=== PATIENT | male | born 1995 | race African-American/Black ===

== ENCOUNTER 2018-05-26 02:42 | Emergency (ER) | payer SELFPAY ==
[2018-05-26] MEDS ORDERED: LORAZEPAM 1 MG TABLET PO ONE (02:56)
--- NOTE | 2018-05-26 02:57 | ER Document Report ---
ED General - General Stated Complaint: WELLNESS CHECK Time Seen by Provider: 05/26/18 02:52 Notes: 23-year-old male presents with palpitations. This happened about an hour ago. They are now better. No shortness of breath no chest pain no chest pressure. The patient had about a gram of cocaine recreationally tonight over the evening , then took a shot and a half of alcohol. He went home and his he often does after doing cocaine, took a shot of NyQuil to go to sleep. 30 minutes later he had palpitations. Past Medical History - Social History Smoking Status: Never Smoker Frequency of alcohol use: Occasional Drug Abuse: Cocaine Family History: None Review of Systems - Review of Systems Notes: REVIEW OF SYSTEMS GEN: Denies fever, chills, weight loss ENT: Denies sore throat, nasal discharge, ear pain EYES: Denies blurry vision, eye pain, discharge CV: Palpitations no chest pain RESP: Denies cough, shortness of breath, wheezing GI: Denies abdominal pain, nausea, vomiting, diarrhea MSK: Denies joint pain/swelling, edema, SKIN: Denies rash, skin lesions LYMPH: Denies swollen glands/lymph nodes NEURO: Denies headache, focal weakness or numbness, dizziness PSYCH: Denies depression, suicidal or homicidal ideation PHYSICAL EXAMINATION General: No acute distress, well-nourished Head: Atraumatic, normocephalic ENT: Mouth normal, oropharynx moist, no exudates or tonsillar enlargement Eyes: Conjunctiva normal, pupils equal, lids normal Neck: No JVD, supple, no guarding CVS: Normal rate, regular rhythm, no murmurs Resp: No resp distress, equal and normal breath sounds bilaterally GI: Nondistended, soft, no tenderness to palpation, no rebound or guarding Ext: No deformities, no edema, normal range of motion in upper and lower ext Back: No CVA or midline TTP Skin: No rash, warm Lymphatic: No lymphadeopathy noted Neuro: Awake, alert. Face symmetric. GCS 15. Physical Exam - Vital signs Vitals: Temp Pulse Resp BP Pulse Ox 98.8 F 91 18 115/87 H 97 05/26/18 02:43 05/26/18 02:43 05/26/18 02:43 05/26/18 02:43 05/26/18 02:43 Course - Re-evaluation Re-evalutation: 05/26/18 03:14 Presents with palpitations after cocaine use combined with NyQuil. Possible anticholinergic on top of sympathomimetic symptoms. He has no chest pain or pressure. He looks very well on exam and has no cardiac history. EKG was done which shows LVH but no acute ST changes. The patient is stable to be discharged home given normal vital signs to follow-up with primary care. Advised against cocaine use. I have discussed with the patient there likely diagnosis, aftercare plan, follow-up plans and my usual and customary return precautions. They verbalized understanding of this. - Vital Signs Vital signs: Temp Pulse Resp BP Pulse Ox 98.8 F 91 18 115/87 H 97 05/26/18 02:43 05/26/18 02:43 05/26/18 02:43 05/26/18 02:43 05/26/18 02:43 - EKG Interpretation by Me EKG shows normal: Sinus rhythm Voltage: Consistant with LVH - No acute ST elevation or depression Discharge - Discharge Clinical Impression: Palpitations, Cocaine use Condition: Good Disposition: HOME, SELF-CARE Instructions: Cocaine Abuse ([facility]), Palpitations (Irregular or Rapid Heartrate) ([facility]) Referrals: YAMEL PARISI MD [Primary Care Provider] - Follow up as needed
[2018-05-26 03:14] VITALS: BP 115/87
== END 2018-05-26 03:53 | disposition home or self-care (01) ==
LOC: ER 02:42
DX: F14.10 Cocaine abuse, uncomplicated (principal); R00.2 Palpitations; I51.7 Cardiomegaly
CPT/HCPCS: 99282

== ENCOUNTER 2018-10-15 14:27 | Emergency (ER) | payer SELFPAY ==
[2018-10-15 14:42] VITALS: BP 127/66
--- NOTE | 2018-10-15 21:05 | EKG REPORT ---
SEVERITY:- ABNORMAL ECG - SINUS RHYTHM BORDERLINE Q WAVES IN INFERIOR LEADS NONSPECIFIC T ABNORMALITIES, LATERAL LEADS LVH : Confirmed by: Nanette Kong MD 15-Oct-2018 21:04:15
== END 2018-10-15 19:19 | disposition left against medical advice (07) ==
LOC: ER 14:27
DX: Z53.21 Procedure and treatment not carried out due to patient leaving prior to being seen by health care provider (principal)
CPT/HCPCS: 93005; 93010

== ENCOUNTER 2018-10-23 10:46 | Observation (INO) | payer SELFPAY ==
--- NOTE | 2018-10-23 11:38 | ER Document Report ---
Entered by MANJU DICK SCRIBE 10/23/18 1121 Acting as scribe for:TRACY LAMB MD ED General - General Chief Complaint: Rectal Pain Stated Complaint: RECTAL ISSUE Time Seen by Provider: 10/23/18 11:08 Mode of Arrival: Ambulatory Information source: Patient Notes: Patient is a 23 year old male with no significant medical history presents to the emergency department complaining of rectal pain onset 3-4 days ago. Patient states he feels as if something is hanging from his rectum and further reports it is painful to sit down. He denies a previous history of similar symptoms. TRAVEL OUTSIDE OF THE [place] IN LAST 30 DAYS: No - Related Data Allergies/Adverse Reactions: No Known Allergies Allergy (Verified 10/23/18 10:47) Past Medical History - General Information source: Patient - Social History Smoking Status: Current Some Day Smoker Chew tobacco use (# tins/day): No Frequency of alcohol use: Occasional Drug Abuse: Marijuana Family History: None Patient has suicidal ideation: No Patient has homicidal ideation: No Review of Systems - Review of Systems Constitutional: No symptoms reported EENT: No symptoms reported Cardiovascular: No symptoms reported Respiratory: No symptoms reported Gastrointestinal: See HPI Genitourinary: No symptoms reported Male Genitourinary: No symptoms reported Musculoskeletal: See HPI Skin: No symptoms reported Hematologic/Lymphatic: No symptoms reported Neurological/Psychological: No symptoms reported -: Yes All other systems reviewed and negative Physical Exam - Vital signs Vitals: Temp Pulse Resp BP Pulse Ox 98.4 F 91 16 115/81 94 10/23/18 10:59 10/23/18 10:59 10/23/18 10:59 10/23/18 10:59 10/23/18 10:59 - Notes Notes: GENERAL: Alert, interacts well. No acute distress. HEAD: Normocephalic, atraumatic. EYES: Pupils equal, round, and reactive to light. Extraocular movements intact. ENT: Oral mucosa moist, tongue midline. NECK: Full range of motion. Supple. Trachea midline. LUNGS: Clear to auscultation bilaterally, no wheezes, rales, or rhonchi. No respiratory distress. HEART: Regular rate and rhythm. No murmurs, gallops, or rubs. ABDOMEN: Soft, non-tender. Non-distended. Bowel sounds present in all 4 q uadrants. No guarding, rigidity, or rebound. EXTREMITIES: Moves all 4 extremities spontaneously. No edema, radial and dorsalis pedis pulses 2/4 bilaterally. No cyanosis. NEUROLOGICAL: Alert and oriented x3. Normal speech. PSYCH: Normal affect, normal mood. SKIN: Warm, dry, normal turgor. No rashes or lesions noted. GI/: No external hemorrhoids visualized. There is a non fluctuant mass that is tender to palpation between the scrotum and the anus. Course - Re-evaluation Re-evalutation: 10/23/18 11:36 Dr. Tavarez came to see the patient. Did an ultrasound of the perineal body region showing a large fluid collection that extends down to the anus. Cannot tell if there is any involvement with the anal canal. He plans to take him to the operating room for an exam under general anesthesia and drainage of the abscess. - Vital Signs Vital signs: Temp Pulse Resp BP Pulse Ox 98.4 F 91 16 115/81 94 10/23/18 10:59 10/23/18 10:59 10/23/18 10:59 10/23/18 10:59 10/23/18 10:59 - Consults Dr. Tavarez Time consulted: 11:14 Consulted provider: will come to ER Discharge - Discharge Clinical Impression: Perineal abscess Condition: Stable Disposition: ADMITTED INPATIENT Admitting Provider: Surgicalist Unit Admitted: OR Scribe Attestation: 10/23/18 11:37 I personally performed the services described in the documentation, reviewed and edited the documentation which was dictated to the scribe in my presence, and it accurately records my words and actions. I personally performed the services described in the documentation, reviewed and edited the documentation which was dictated to the scribe in my presence, and it accurately records my words and actions.
[2018-10-23] MEDS ORDERED: CEFAZOLIN 1 GM/D5W RTU 1 GM/50 ML RTUPB IV ONE (11:50)
--- NOTE | 2018-10-23 11:53 | Operative Report ---
Operative Report DATE OF SURGERY: 10/23/18 PREOPERATIVE DIAGNOSIS: Perineal swelling and tenderness POSTOPERATIVE DIAGNOSIS: Same with perianal abscess OPERATION: Focused ultrasound of the perineum SURGEON: AURELIA LUNA ANESTHESIA: Other - None TISSUE REMOVED OR ALTERED: None COMPLICATIONS: None ESTIMATED BLOOD LOSS: None INTRAOPERATIVE FINDINGS: See below PROCEDURE: The patient was examined in room 6 in the emergency department. He was placed in supine position leg spread. Area of tenderness at the base of the scrotum along the peroneal body between the base of scrotum and anus was scanned with the variable frequency linear transducer. Findings were significant for a hypoechoic well-circumscribed mass to the left of the raphe extending down towards the anal canal. There were tattered echoes within the hypoechoic mass. The patient was tender to palpation and during the scanning process. Impression: Perianal abscess extending anteriorly toward the base of scrotum to rule out fistula in anal. Recommendations: Admit, drainage procedure in the operating room.
--- NOTE | 2018-10-23 11:58 | PDOC H&P ---
History of Present Illness Admission Date/PCP: 10/23/18 11:41 Patient complains of: Perineal pain History of Present Illness: PADMINI LUCAS is a 23 year old male Presents to the emergency department with 3-day history of swelling, pain primarily at the base of scrotum, and change in bowel habits with increased mucus. Patient denies previous episodes of. He denies instrumentation to this area. He was examined in emergency department by Dr. Tez Cavazos and clinically was felt to have a perineal body or junie-anal abscess. Surgery was consulted and Dr. Tavarez performed bedside ultrasonography which confirmed perianal abscess. Patient was advised admission for definitive management. Past Medical History Medical History: None Past Surgical History Past Surgical History: Reports: None Social History Information Source: Patient Smoking Status: Current Some Day Smoker Frequency of Alcohol Use: Rare Family History Family History: None Parental Family History Reviewed: Yes Children Family History Reviewed: Yes Sibling(s) Family History Reviewed.: Yes Medication/Allergy Allergies/Adverse Reactions: No Known Allergies Allergy (Verified 10/23/18 10:47) Review of Systems Constitutional: PRESENT: as per HPI Eyes: ABSENT: visual disturbances Ears: ABSENT: hearing changes Cardiovascular: ABSENT: chest pain, dyspnea on exertion, edema, orthropnea, palpitations Respiratory: ABSENT: cough, hemoptysis Gastrointestinal: PRESENT: as per HPI. ABSENT: abdominal pain, constipation, diarrhea, hematemesis, hematochezia, nausea, vomiting Genitourinary: ABSENT: dysuria, hematuria Musculoskeletal: ABSENT: joint swelling Integumentary: ABSENT: rash, wounds Neurological: ABSENT: abnormal gait, abnormal speech, confusion, dizziness, focal weakness, syncope Physical Exam Vital Signs: Temp Pulse Resp BP Pulse Ox 98.4 F 91 16 115/81 94 10/23/18 10:59 10/23/18 10:59 10/23/18 10:59 10/23/18 10:59 10/23/18 10:59 Intake & Output 10/22/18 10/23/18 10/24/18 06:59 06:59 06:59 Weight 88.2 kg General appearance: PRESENT: no acute distress Head exam: PRESENT: normocephalic Eye exam: PRESENT: EOMI Mouth exam: PRESENT: dry mucosa Neck exam: PRESENT: full ROM Respiratory exam: PRESENT: clear to auscultation tanesha Cardiovascular exam: PRESENT: RRR Pulses: PRESENT: normal carotid pulses, normal radial pulses, normal femoral pulses, normal dorsalis pedis pul GI/Abdominal exam: PRESENT: soft Rectal exam: PRESENT: other - Patient examined in the supine frog-leg position. There is tenderness along the median raphae left greater than right extending down to the perianal region. There is no foul smell, pus, active drainage. I did not repeat the rectal examination. Extremities exam: PRESENT: full ROM Musculoskeletal exam: PRESENT: full ROM Neurological exam: PRESENT: alert, awake, oriented to person, oriented to time, oriented to situation Psychiatric exam: PRESENT: appropriate affect Assessment & Plan - Diagnosis (1) Abscess of perineum Is this a current diagnosis for this admission?: Yes Plan: Impression: Acute perianal abscess, rule out fistula in ano Recommendations: 1. Admit, n.p.o., IV fluids, IV antibiotics, take patient to operating room for exam under anesthesia, drainage of perianal abscess, possible fistulotomy, possible seton placement. 2. The above was explained to the patient and his significant other. I believe they understand and agree to proceed. (2) Smoker Is this a current diagnosis for this admission?: Yes - Time Time Spent: 30 to 50 Minutes Critical Time spent with patient: Less than 15 minutes Medications reviewed and adjusted accordingly: Yes Anticipated discharge: Home - Inpatient Certification Based on my medical assessment, after consideration of the patient's comorbidities, presenting symptoms, or acuity I expect that the services needed warrant INPATIENT care.: Yes I certify that my determination is in accordance with my understanding of Medicare's requirements for reasonable and necessary INPATIENT services [42 CFR 412.3e].: Yes Medical Necessity: Need For IV Fluids, Need for Pain Control, Need for IV Antibiotics, Need for Surgery
[2018-10-23] MEDS: RINGERS SOLUTION,LACTATED 1,000 ML IV PRN ×2 (12:36→22:04)
[2018-10-23] MEDS ORDERED: IPRATROPIUM/ALBUTEROL 0.5-2.5 MG/3 ML AMPUL NEB ONE (14:06)
[2018-10-23] MEDS ORDERED: MIDAZOLAM 2 MG/2 ML INJ ONE (14:14)
[2018-10-23] MEDS ORDERED: HYDROMORPHONE HCL INJ/PF 2 MG/ML AMPULE ONE (14:15)
[2018-10-23] MEDS ORDERED: ONDANSETRON HCL INJ/PF 4 MG/2 ML SDV ONE (14:15)
[2018-10-23] MEDS ORDERED: ACETAMINOPHEN 1,000 MG/100 ML RTUPB IV ONE (14:15)
[2018-10-23] MEDS ORDERED: PROPOFOL INJ 200 MG/20 ML VIAL IV ONE (14:15)
[2018-10-23] MEDS ORDERED: BUPIVACAINE HCL 0.25 % INJ/PF (2.5 MG/1 ML) 30 ML VIAL ONE (14:20)
[2018-10-23] MEDS ORDERED: PROMETHAZINE HCL INJ 25 MG/1 ML VIAL IV PRN (14:53)
[2018-10-23] MEDS ORDERED: MORPHINE SULFATE 10 MG/ML INJ IV PRN (14:53)
[2018-10-23] MEDS ORDERED: MEPERIDINE HCL/PF INJ 25 MG/1 ML DISP.SYRIN IV PRN (14:53)
[2018-10-23] MEDS ORDERED: DIPHENHYDRAMINE HCL 50 MG/ML VIAL IV PRN (14:53)
[2018-10-23] MEDS ORDERED: FENTANYL CITRATE INJ/PF 100 MCG/2 ML AMPUL IV PRN ×3 (14:53)
[2018-10-23] MEDS ORDERED: ONDANSETRON HCL INJ/PF 4 MG/2 ML SDV IV PRN (15:10)
[2018-10-23] MEDS ORDERED: KETOROLAC TROMETHAMINE 10 MG TABLET PO PRN (15:10)
[2018-10-23] MEDS ORDERED: OXYCODONE-ACETAMINOPHEN 5-325 MG TABLET PO PRN (15:20)
--- NOTE | 2018-10-23 15:20 | Operative Report ---
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 Examination under anesthesia. 2. Drainage of perianal abscess with irrigation and packing. 3. Fistulotomy right anterior position, intersph incter. 4. Placement of shamar loop seton SURGEON: AURELIA LUNA ANESTHESIA: GA TISSUE REMOVED OR ALTERED: Pus, skin, necrotic fat COMPLICATIONS: None ESTIMATED BLOOD LOSS: Minimal INTRAOPERATIVE FINDINGS: See below PROCEDURE: Patient was taken to the preop holding area the main operating room where general anesthesia was induced. Patient was placed in the supine, legs frog legged, testicles elevated cephalad and taped out of the operative field. The perineum was shaved, then prepped and draped in sterile fashion. Surgical plan and surgical timeout were conducted. The findings are significant for an elevated, tense perineal body, median raphae, and perianal skin all anterior to the anal region. This entire area was anesthetized with 1% plain lidocaine. There was no active wound however with pressure on the perineal body, I was able to express some pus from the perianal tissue in the right anterior position. I did digitalize the anal canal, dilated up to accept two fingers, then inserted the bullet anoscope. Careful inspection of the anal canal up to the dentate line revealed no obvious internal openings to a fistula. I did palpate this area and I could not feel or see a distinct opening. A longitudinal incision was made in the patient's midline over the raphae. We got right into the pus pocket, sent it for Gram stain culture and sensitivity, and broke up loculations cephalad and caudad using index finger. Cephalad the tracking extended towards the base of the scrotum several centimeters. A small ellipse of skin was excised with a #10 blade. Subcutaneous fat which was inflamed was debrided bluntly. Of note the abscess tracked to the patient's midline anteriorly, then to the right anterior position. Using combination of suction, as well as probes, I was able to feel the tracking point going down towards the sphincter, in a radial direction and eventually down through the sphincter towards the dentate line. Using a metallic thin probe I was able to insinuate the opening to the fistula, and gingerly poked the probe into the anal canal. I then passed a flexible rubberize dev loop into position and tied it into a not effectively creating a seton. The abscess cavity in essence tract from the patient's midline to the patient's right anterior perianal pocket then through the external sphincter muscle into the anal canal. The wound cavity was irrigated,, then packed with iodoform packing cephalad and caudad towards the anal canal. 4 x 4's applied. Patient tolerated procedure well.
[2018-10-23] MEDS ORDERED: DOCUSATE SODIUM 100 MG CAPSULE PO SCH (18:00)
[2018-10-23] MEDS ORDERED: AMPICILLIN SODIUM/SULBACTAM NA 3 GM in NORMAL SALINE 100 ML IV SCH (22:00)
[2018-10-23] MEDS: AMPICILLIN SODIUM/SULBACTAM NA 3 GM in NORMAL SALINE 100 ML IV SCH (22:04)
[2018-10-23] MEDS: KETOROLAC TROMETHAMINE INJ/PF 30 MG/1 ML SDV IV PRN (22:13)
[2018-10-24] MEDS: KETOROLAC TROMETHAMINE INJ/PF 30 MG/1 ML SDV IV PRN (05:26)
[2018-10-24] MEDS: AMPICILLIN SODIUM/SULBACTAM NA 3 GM in NORMAL SALINE 100 ML IV SCH (05:30)
[2018-10-24 08:47] VITALS: BP 115/51
--- NOTE | 2018-10-24 10:05 | PDOC PROGRESS REPORT ---
Subjective Progress Note for:: 10/24/18 Subjective:: no c/o Reason For Visit: PERINEAL ABSCESS Physical Exam Vital Signs: Temp Pulse Resp BP Pulse Ox 98.2 F 67 12 115/51 L 96 10/24/18 07:39 10/24/18 07:39 10/24/18 07:39 10/24/18 07:39 10/24/18 07:39 Intake & Output 10/23/18 10/24/18 10/25/18 06:59 06:59 06:59 Intake Total 3350 Output Total 300 Balance 3050 Weight 86.6 kg General appearance: PRESENT: no acute distress Rectal exam: PRESENT: other - surgical wound clean, no odor, minimal serosanguinous drainage, rubber seton in place Assessment & Plan - Diagnosis (1) Abscess of perineum Is this a current diagnosis for this admission?: Yes - Plan Summary Plan Summary: A/ POD#1 after I&D of perianal/perineal abscess Surgical site clean, seton in place packing removed P Remove packing Home today Follow up with Surgery [facility] ([facility]) in 2 weeks BID shower and sitz bath apply dry sponge to area, no packing or tape needed do not remove the plastic drain Tylenol 325 mg po q6 prn pain Toradol 10 mg po q6 prn pain x 12 doses, take it with food
--- NOTE | 2018-10-24 16:39 | DISCHARGE SUMMARY E ---
Discharge Summary NAME: PADMINI LUCAS : 1995 AGE: 23Y ADMITTED: 10/23/2018 DISCHARGED: 10/24/2018 FINAL DIAGNOSIS: Perineal and perirectal abscess on the right side. PROCEDURE: Incision and drainage of perineal and perirectal abscess, with drain placement on October 23, 2018. HOSPITAL COURSE: This is a 23-year-old healthy -[place] male admitted on October 23, 2018 for pain in the perineal and perianal area. An ultrasound of the area was done, revealing a large abscess. The patient was taken to surgery, where he underwent perineal and perirectal abscess drainage. In addition, a draining point in the rectum was identified and the patient underwent placement of a seton. The procedure was well-tolerated. The patient was then transferred to the floor in satisfactory condition. His postop course was unremarkable. On the day of discharge, the patient's vital signs were stable. He was afebrile. The wound was clean with minimal serous drainage. The packing was removed. Drain was then placed. No evidence of cellulitis or odor was present. DISCHARGE ORDERS: The patient was discharged on October 24, 2018, to follow up in the surgery office in 2 weeks. The patient was instructed to shower twice a day and to perform a sitz bath once or twice a day. Apply dry packing to the area. Tylenol and Toradol p.o. prn for pain. No antibiotics needed. DICTATING PHYSICIAN: CINDY LOVELACE M.D. [id number] PHY#: [id number] ID: [id number] JOB#: [id number] ACCT: [id number] cc:Alexey FOX M.D. > MTDD
== END 2018-10-24 11:00 | disposition home or self-care (01) ==
LOC: ER 10:46 → INTOOBSV 11:41 → EH 11:41 → 2N 16:02
PROVIDERS: ADMIT Surgery; ATTEND Surgery
PROC: 0D9Q0ZX Drainage of Anus, Open Approach, Diagnostic (ICD-10-PCS; 2018-10-23)
PROC: 0DBQ0ZZ Excision of Anus, Open Approach (ICD-10-PCS; principal; 2018-10-23 14:00)
DX: L02.215 Cutaneous abscess of perineum (principal); K61.0 Anal abscess; F17.200 Nicotine dependence, unspecified, uncomplicated
CPT/HCPCS: 99285; 87070; 87205; 87075; 87077; 46275; 46020; 46050; G0378 ×3; J2250; J0690; J1200; J0295 ×2; J1885 ×2; J1170; J2405; J7120; J2704; J7620; J0131; 902; J7050

== ENCOUNTER 2018-12-06 15:27 | Emergency (ER) | payer SELFPAY ==
[2018-12-06] MEDS ORDERED: IPRATROPIUM/ALBUTEROL 0.5-2.5 MG/3 ML AMPUL NEB ONE (17:02)
[2018-12-06] MEDS ORDERED: METHYLPREDNISOLONE INJ 125 MG/2 ML SDV IV ONE (17:02)
--- NOTE | 2018-12-06 17:12 | ER Document Report ---
ED Medical Screen (RME) - General Chief Complaint: Asthma Exacerbation Stated Complaint: BREATHING PROBLEMS Time Seen by Provider: 12/06/18 17:01 Mode of Arrival: Ambulatory Information source: Patient Notes: 23-year-old male presents to ED for asthma attack chest tightness wheezing audible without a stethoscope. Very diminished lung sounds inspiratory and expiratory wheezes. He is short of breath with O2 sat of 96. He states he has never had a asthma attack this bad. I have started him on Solu-Medrol albuterol and duo nebs. He will get blood work and chest x-ray and be seen by another provider. I have greeted and performed a rapid initial assessment of this patient. A comprehensive ED assessment and evaluation of the patient, analysis of test results and completion of medical decision making process will be conducted by an additional ED providers. Dictation of this chart was performed using voice recognition software; therefore, there may be some unintended grammatical errors. TRAVEL OUTSIDE OF THE [place] IN LAST 30 DAYS: No - Related Data Allergies/Adverse Reactions: No Known Allergies Allergy (Verified 10/23/18 10:47) Past Medical History - Social History Chew tobacco use (# tins/day): No Frequency of alcohol use: Social Drug Abuse: None Pulmonary Medical History: Reports: Hx Asthma Renal/ Medical History: Denies: Hx Peritoneal Dialysis Physical Exam - Vital signs Vitals: Temp Pulse Resp BP Pulse Ox 99.1 F 68 16 121/67 96 12/06/18 16:10 12/06/18 16:10 12/06/18 16:10 12/06/18 16:10 12/06/18 16:10 Course - Vital Signs Vital signs: Temp Pulse Resp BP Pulse Ox 99.1 F 68 16 121/67 96 12/06/18 16:10 12/06/18 16:10 12/06/18 16:10 12/06/18 16:10 12/06/18 16:10
[2018-12-06] MEDS: ALBUTEROL SULFATE 0.083% NEB 2.5 MG/3 ML AMPUL NEB SCH ×2 (17:30→18:00)
[2018-12-06 17:36] LABS: ABSOLUTE EOSINOPHILS # (AUTO) 0.6 10^3/uL (0.0-0.6); ABSOLUTE LYMPHOCYTES (AUTO) 2.4 10^3/uL (0.5-4.7); ABSOLUTE MONOCYTES (AUTO) 0.4 10^3/uL (0.1-1.4); ABSOLUTE NEUT (AUTO) 1.8 10^3/uL (1.7-8.2); BASOPHILS % (AUTO) 0.4 % (0-2); EOSINOPHILS % (AUTO) 10.7 % (0-6); HEMATOCRIT 41.2 % (37.9-51.0); HEMOGLOBIN 13.4 g/dL (13.5-17.0); LYMPHOCYTES % (AUTO) 45.2 % (13-45); MEAN CORPUSCULAR HEMOGLOBIN 28.3 pg (27.0-33.4); MEAN CORPUSCULAR HGB CONC 32.5 g/dL (32.0-36.0); MEAN CORPUSCULAR VOLUME 87 fl (80-97); MONOCYTES % (AUTO) 8.6 % (3-13); PLATELET COUNT 168 10^3/uL (150-450); RED BLOOD COUNT 4.73 10^6/uL (4.35-5.55); RED CELL DISTRIBUTION WIDTH 13.4 % (11.5-14.0); SEGMENTED NEUTROPHILS % (AUTO) 35.1 % (42-78); TOTAL CELLS COUNTED % (AUTO) 100 %; WHITE BLOOD COUNT 5.2 10^3/uL (4.0-10.5)
[2018-12-06 17:56] LABS: ALANINE AMINOTRANSFERASE 21 U/L (21-72); ALBUMIN 4.7 g/dL (3.5-5.0); ALKALINE PHOSPHATASE 57 U/L (38-126); ANION GAP 12 (5-19); ASPARTATE AMINO TRANSFERASE 21 U/L (17-59); BILIRUBIN,DIRECT 0.2 mg/dL (0.0-0.4); BILIRUBIN,TOTAL 0.6 mg/dL (0.2-1.3); BLOOD UREA NITROGEN 15 mg/dL (7-20); CALCIUM 9.8 mg/dL (8.4-10.2); CARBON DIOXIDE 28 mmol/L (22-30); CHLORIDE 104 mmol/L (98-107); GLUCOSE 89 mg/dL (75-110); POTASSIUM 4.4 mmol/L (3.6-5.0); SODIUM 143.6 mmol/L (137-145); TOTAL PROTEIN 7.9 g/dL (6.3-8.2)
[2018-12-06] MEDS ORDERED: ALBUTEROL SULFATE HFA (90 MCG/PUFF) 8 GM MDI (1 MDI/ER DISP) IH ONE (18:31)
[2018-12-06 18:35] VITALS: BP 127/75
--- NOTE | 2018-12-06 18:37 | RADIOLOGY REPORT (SQ) ---
EXAM DESCRIPTION: CHEST 2 VIEWS COMPLETED DATE/TIME: 12/06/2018 5:34 pm REASON FOR STUDY: wheezing very tight pain COMPARISON: 04/03/2007 and earlier EXAM PARAMETERS: NUMBER OF VIEWS: two views TECHNIQUE: Digital Frontal and Lateral radiographic views of the chest acquired. RADIATION DOSE: NA LIMITATIONS: none FINDINGS: LUNGS AND PLEURA: No opacities, masses or pneumothorax. No pleural effusion. MEDIASTINUM AND HILAR STRUCTURES: No masses or contour abnormalities. HEART AND VASCULAR STRUCTURES: Heart normal size. No evidence for failure. BONES: No acute findings. HARDWARE: None in the chest. OTHER: No other significant finding. IMPRESSION: NO ACUTE RADIOGRAPHIC FINDING IN THE CHEST. TECHNICAL DOCUMENTATION: JOB ID: [id number] [email or web address]- All Rights Reserved Reading location - IP/workstation name: [email or web address]
--- NOTE | 2018-12-06 18:37 | ER Document Report ---
ED Respiratory Problem - General Chief Complaint: Asthma Exacerbation Stated Complaint: BREATHING PROBLEMS Time Seen by Provider: 12/06/18 17:01 Primary Care Provider: [facility] [Provider Group] - Follow up as needed Mode of Arrival: Ambulatory Information source: Patient TRAVEL OUTSIDE OF THE [place] IN LAST 30 DAYS: No - HPI Patient complains to provider of: Asthma Notes: Patient here with complaints of asthma attack. The patient states that he cut several lawns over the weekend. After cutting the second line he started to feel like his asthma was acting up and he was having some cough and wheeze. No fever. He denies any chest pain but states he was having some tightness similar to previous asthma exacerbations. States this certainly seem to be 1 of the worst asthma exacerbations he has had. He has been admitted to the hospital for his asthma in the past but has never been intubated. He denies any fevers. He denies any recent long trips or surgeries, no leg pain or leg swelling, no cancer, no history of DVT or PE. No abdominal pain. No nausea, vomiting, diarrhea. No numbness, tingling, weakness. He denies any further complaints at this time. - Related Data Allergies/Adverse Reactions: No Known Allergies Allergy (Verified 10/23/18 10:47) Past Medical History - General Information source: Patient - Social History Smoking Status: Never Smoker Chew tobacco use (# tins/day): No Frequency of alcohol use: Social Drug Abuse: None Family History: None Patient has suicidal ideation: No Patient has homicidal ideation: No Pulmonary Medical History: Reports: Hx Asthma Renal/ Medical History: Denies: Hx Peritoneal Dialysis Review of Systems - Review of Systems -: Yes All other systems reviewed and negative Physical Exam - Vital signs Vitals: Temp Pulse Resp BP Pulse Ox 99.1 F 68 16 121/67 96 12/06/18 16:10 12/06/18 16:10 12/06/18 16:10 12/06/18 16:10 12/06/18 16:10 - Notes Notes: GENERAL: alert, cooperative, nontoxic, no distress. HEAD: normocephalic, atraumatic EYES: conjunctiva pink without discharge, no external redness or swelling. EARS: no external swelling, no external redness, no mastoid redness, swelling, tenderness. Ear canals are clear without swelling or drainage. TMs pearly torres, no redness, no bulging, normal landmarks, no perforation. NOSE: atraumatic, no external swelling. clear rhinorrhea noted. MOUTH/THROAT: mucous membranes moist and pink, posterior pharynx without erythema, swelling, exudate. No trismus or drooling. NECK: soft, supple, full range of motion, no meningismus. CHEST: no distress, patient reported to have auditory expiratory wheezing prior to my exam. From my exam the patient has a few scattered wheezes, good air movement, no distress. CARDIAC: regular rate and rhythm, no murmur, normal capillary refill, normal pulses. No peripheral edema noted. BACK: full range of motion, no CVA tenderness. EXTREMITIES: full range of motion of all extremities. No redness, no swelling. NEURO: alert and oriented A&O3, no focal deficits, full range of motion of all e xtremities. PYSCH: appropriate mood, affect. Patient is cooperative. SKIN: pink, warm, dry, no rash. Course - Re-evaluation Re-evalutation: 12/06/18 18:35 Patient is nontoxic-appearing with stable vitals. Patient here with complaints of possible asthma exacerbation. He has a history of asthma states that he cut grass over the weekend and started having trouble breathing and wheezing for that. No fever. No chest pain. Patient was seen and initially noted to have wheezing by the triage provider. He was given duo nebs and Solu-Medrol. He states that he feels significantly better at this time. He does not currently have insurance, therefore he will be given a albuterol inhaler to go home with. Lab work is unremarkable for any significant abnormalities. His vitals are stable, he is not hypoxic. He is in no distress at this time. Currently awaiting chest x-ray results. If x-ray results are unremarkable for any significant abnormalities, the patient will be discharged home with a prescription for prednisone, albuterol and [facility]. He was instructed also take an bnqf-jyd-yqocrvq antihistamine such as Claritin, Zyrtec or Germania as directed. Follow-up if he gets worse in any way, high fever, chest pain, significant trouble breathing, or for any further concerns. The patient's emergency department workup and current diagnosis were explained to the patient and or family. Follow-up instructions were provided. Medications if prescribed were discussed. Instructions for when to return to the emergency department including specific worrisome symptoms were discussed with the patient and/or family. - Vital Signs Vital signs: Temp Pulse Resp BP Pulse Ox 98.4 F 65 20 127/75 H 98 12/06/18 18:33 12/06/18 18:33 12/06/18 18:33 12/06/18 18:33 12/06/18 18:33 - Laboratory Result Diagrams: 12/06/18 17:10 12/06/18 17:10 Laboratory results interpreted by me: 12/06/18 17:10 Hgb 13.4 L Seg Neutrophils % 35.1 L Lymphocytes % 45.2 H Eosinophils % 10.7 H Discharge - Discharge Clinical Impression: Asthma exacerbation Qualifiers: Asthma severity: moderate Asthma persistence: unspecified Qualified Code(s): J45.901 - Unspecified asthma with (acute) exacerbation Condition: Stable Disposition: HOME, SELF-CARE Instructions: Asthma ([facility]) Additional Instructions: Take medications as prescribed. Take an [id number]-imndfjp antihistamine such as Claritin, Zyrtec, or Germania as directed. Follow-up if not improving in the next 24 to 48 hours, sooner for worsening symptoms, chest pain, significant trouble breathing, high fever, persistent vomiting, or for any further concerns. Prescriptions: Albuterol Sulfate [Proair HFA Inhalation Aerosol 8.5 gm MDI] 2 puff IH Q4H PRN #1 mdi PRN Reason: Albuterol Sulfate [Ventolin 0.083% Neb 2.5 mg/3 mL Ampul] 1 vial NEB Q4 #20 vial Prednisone [Deltasone 20 mg Tablet] 3 tab PO DAILY 5 Days tablet Forms: Elevated Blood Pressure, Smoking Cessation Education Referrals: [facility] [Provider Group] - Follow up as needed
== END 2018-12-06 19:16 | disposition home or self-care (01) ==
LOC: ER 15:27
DX: J45.901 Unspecified asthma with (acute) exacerbation (principal)
CPT/HCPCS: 94640 ×2; 99283; 96374; 36415; 85025; 80053; 71046; J2930; J3490; J7620

== ENCOUNTER 2019-06-04 15:52 | Emergency (ER) | payer OTHER ==
[2019-06-04 16:03] VITALS: BP 138/78
[2019-06-04] MEDS ORDERED: CEFTRIAXONE INJ 250 MG VIAL IM ONE (16:14)
[2019-06-04] MEDS ORDERED: AZITHROMYCIN 250 MG TABLET PO ONE (16:15)
[2019-06-04] MEDS ORDERED: LIDOCAINE 1% INJ (10 MG/ML) 10 ML MDV INJ ONE (16:15)
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
[2019-06-04 17:52] LABS: APPEARANCE,URINE CLEAR; BILIRUBIN,URINE NEGATIVE (NEGATIVE); COLOR,URINE YELLOW; GLUCOSE, URINE NEGATIVE (NEGATIVE); KETONES,URINE NEGATIVE (NEGATIVE); LEUKOCYTE ESTERASE,URINE NEGATIVE (NEGATIVE); NITRITE,URINE NEGATIVE (NEGATIVE); PROTEIN,URINE NEGATIVE (NEGATIVE); URINE SPECIFIC GRAVITY 1.024; UROBILINOGEN,URINE NEGATIVE mg/dL (<2.0)
[2019-06-04 19:41] LABS: CHLAM PCR NOT DETECTED (NOT DETECT)
== END 2019-06-04 18:49 | disposition home or self-care (01) ==
LOC: ER 15:52
DX: R30.0 Dysuria (principal); Z20.2 Contact with and (suspected) exposure to infections with a predominantly sexual mode of transmission
CPT/HCPCS: 81001; 87491; 87591; J0696; 96372; 99283

== ENCOUNTER 2019-08-23 11:51 | Emergency (ER) | payer BC, OTHER ==
--- NOTE | 2019-08-23 12:40 | ER Document Report ---
ED Medical Screen (RME) - General Chief Complaint: Groin Pain Stated Complaint: GROIN PAIN Time Seen by Provider: 08/23/19 12:38 Mode of Arrival: Ambulatory Information source: Patient Notes: 24-year-old male presented to ED for complaint of groin pain. He states that he had a perianal abscess surgically removed with a drain left in a year ago. He states he has working with the surgeon and they would not see him at the time because he did not have insurance now he has insurance and his surgeon told him he would have to have $800 upfront before they would see him. He states he has severe pain he states his pain is a spasming jacey feeling in his groin area and is very painful. We will get blood urine and a pelvic ultrasound. I have greeted and performed a rapid initial assessment of this patient. A comprehensive ED assessment and evaluation of the patient, analysis of test results and completion of medical decision making process will be conducted by an additional ED providers. TRAVEL OUTSIDE OF THE [place] IN LAST 30 DAYS: No - Related Data Allergies/Adverse Reactions: No Known Allergies Allergy (Verified 08/23/19 12:35) Past Medical History Pulmonary Medical History: Reports: Hx Asthma Renal/ Medical History: Denies: Hx Peritoneal Dialysis Physical Exam - Vital signs Vitals: Temp Pulse Resp BP Pulse Ox 98.3 F 75 16 123/76 97 08/23/19 12:08/23/19 12:08/23/19 12:08/23/19 12:08/23/19 12:25 Course - Vital Signs Vital signs: Temp Pulse Resp BP Pulse Ox 98.3 F 75 16 123/76 97 08/23/19 12:08/23/19 12:25 08/23/19 12:08/23/19 12:08/23/19 12:25
[2019-08-23 13:47] LABS: ABSOLUTE EOSINOPHILS # (AUTO) 0.5 10^3/uL (0.0-0.6); ABSOLUTE MONOCYTES (AUTO) 0.4 10^3/uL (0.1-1.4); ABSOLUTE NEUT (AUTO) 1.7 10^3/uL (1.7-8.2); BASOPHILS % (AUTO) 0.7 % (0-2); HEMATOCRIT 43.6 % (37.9-51.0); HEMOGLOBIN 14.6 g/dL (13.5-17.0); MEAN CORPUSCULAR HEMOGLOBIN 29.9 pg (27.0-33.4); MEAN CORPUSCULAR HGB CONC 33.6 g/dL (32.0-36.0); MEAN CORPUSCULAR VOLUME 89 fl (80-97); MONOCYTES % (AUTO) 9.3 % (3-13); PLATELET COUNT 210 10^3/uL (150-450); RED CELL DISTRIBUTION WIDTH 13.2 % (11.5-14.0); TOTAL CELLS COUNTED % (AUTO) 100 %; WHITE BLOOD COUNT 4.6 10^3/uL (4.0-10.5)
[2019-08-23 14:07] LABS: ALBUMIN 4.6 g/dL (3.5-5.0); ALKALINE PHOSPHATASE 47 U/L (38-126); ANION GAP 10 (5-19); ASPARTATE AMINO TRANSFERASE 45 U/L (17-59); BILIRUBIN,DIRECT 0.2 mg/dL (0.0-0.4); BLOOD UREA NITROGEN 20 mg/dL (7-20); CALCIUM 9.7 mg/dL (8.4-10.2); CARBON DIOXIDE 27 mmol/L (22-30); CHLORIDE 103 mmol/L (98-107); GLUCOSE 86 mg/dL (75-110); POTASSIUM 4.3 mmol/L (3.6-5.0); TOTAL PROTEIN 7.5 g/dL (6.3-8.2)
[2019-08-23 16:20] LABS: AMORPHOUS SEDIMENT,URINE 1+ /HPF; APPEARANCE,URINE TURBID; BILIRUBIN,URINE NEGATIVE (NEGATIVE); COLOR,URINE YELLOW; GLUCOSE, URINE NEGATIVE (NEGATIVE); KETONES,URINE NEGATIVE (NEGATIVE); PROTEIN,URINE NEGATIVE (NEGATIVE); URINE SPECIFIC GRAVITY 1.024; UROBILINOGEN,URINE NEGATIVE mg/dL (<2.0)
--- NOTE | 2019-08-23 16:29 | RADIOLOGY REPORT (SQ) ---
EXAM DESCRIPTION: CT PELVIS WITH COMPLETED DATE/TIME: 08/23/2019 4:19 pm REASON FOR STUDY: evaluate for perianal abscess/pain COMPARISON: None. TECHNIQUE: CT scan of the pelvis performed after intravenous contrast. Delayed images. Images revi ewed with soft tissue and bone windows. Reconstructed coronal and sagittal MPR images reviewed. All images stored on PACS. All CT scanners at this facility use dose modulation, iterative reconstruction, and/or weight based d osing when appropriate to reduce radiation dose to as low as reasonably achievable (ALARA). [facility]: Dose Right [facility]: CareDose [facility]: Dose Right [facility]: Teradose 4D [facility]: myGreek RADIATION DOSE: CT Rad equipment meets quality standard of care and radiation dose reduction techniq ues were employed. CTDIvol: 10.4 - 14.4 mGy. DLP: 942 mGy-cm. mGy. LIMITATIONS: None. FINDINGS: PELVIC BONES: No acute fracture. No worrisome bone lesions. VISUALIZED SPINE: No acute findings. HIP(S): No acute fracture or dislocation. No worrisome bone lesions. PELVIC SOFT TISSUES: Fusiform inflammatory changes in the right perianal soft tissue. No abscess. EXTRAPELVIC SOFT TISSUES: No significant findings. OTHER: No other significant finding. IMPRESSION: No abscess. TECHNICAL DOCUMENTATION: JOB ID: [id number] Quality ID # [id number]: Final reports with documentation of one or more dose reduction techniques (e.g., Au tomated exposure control, adjustment of the mA and/or kV according to patient size, use of iterative reconstruction technique) 2010 [employer]- All Rights Reserved Reading location - IP/workstation name: [email or web address]
--- NOTE | 2019-08-23 16:39 | ER Document Report ---
ED General - General Chief Complaint: Groin Pain Stated Complaint: GROIN PAIN Time Seen by Provider: 08/23/19 12:38 Mode of Arrival: Ambulatory TRAVEL OUTSIDE OF THE [place] IN LAST 30 DAYS: No - HPI Notes: Patient presents with perianal pain. He states approximate 1 year ago he had a perianal abscess. This was treated in the operating room here at [facility]. He states a drain was put in place but it was never removed. He states his drain is now causing him pain and he would like to have it removed. He states when he has bowel movements or urinates it does cause him pain. This pain has been intermittent. It is mild to moderate. It is a sharp pain. It is worse with urination or bowel movements and better when it is left alone. The pain does radiate through his perineum. - Related Data Allergies/Adverse Reactions: No Known Allergies Allergy (Verified 08/23/19 12:35) Past Medical History - General Information source: Patient - Social History Smoking Status: Current Every Day Smoker Frequency of alcohol use: None Drug Abuse: None - Vertebral body Family History: None Patient has suicidal ideation: No Patient has homicidal ideation: No Pulmonary Medical History: Reports: Hx Asthma Renal/ Medical History: Denies: Hx Peritoneal Dialysis Review of Systems - Review of Systems Constitutional: denies: Chills - Is not present, Fever Cardiovascular: denies: Chest pain - , And, Palpitations Respiratory: denies: Cough - finished his work-up, Short of breath - problems aside from having pneumonia brought -: Yes All other systems reviewed and negative Physical Exam - Vital signs Vitals: Temp Pulse Resp BP Pulse Ox 98.3 F 75 16 123/76 97 08/23/19 12:25 08/23/19 12:25 08/23/19 12:25 08/23/19 12:25 08/23/19 12:25 Interpretation: Normal - General General appearance: Appears well, Alert - HEENT Head: Normocephalic, Atraumatic Eyes: Normal Pupils: PERRL - Respiratory Respiratory status: No respiratory distress Chest status: Nontender Breath sounds: Normal Chest palpation: Normal - Cardiovascular Rhythm: Regular Heart sounds: Normal auscultation Murmur: No - Abdominal Inspection: Normal Distension: No distension Bowel sounds: Normal Tenderness: Nontender Organomegaly: No organomegaly - Rectal Notes: Patient has a drain in place in the perineum. The area around the drain is tender. However there is no erythema or induration. There is no drainage of pus or fluid. - Back Back: Normal, Nontender - Extremities General upper extremity: Normal inspection, Nontender, Normal color, Normal ROM, Normal temperature General lower extremity: Normal inspection, Nontender, Normal color, Normal ROM, Normal temperature, Normal weight bearing. No: Tal's sign - Neurological Neuro grossly intact: Yes Cognition: Normal Orientation: AAOx4 Vinicius Coma Scale Eye Opening: Spontaneous [place] Coma Scale Verbal: Oriented [place] Coma Scale Motor: Obeys Commands [place] Coma Scale Total: 15 Speech: Normal Motor strength normal: LUE, RUE, LLE, RLE Sensory: Normal - Psychological Associated symptoms: Normal affect, Normal mood - Skin Skin Temperature: Warm Skin Moisture: Dry Skin Color: Normal Course - Re-evaluation Re-evalutation: 08/23/19 16:37 CT scan shows no evidence of abscess or inflammatory process in the perineum. - Vital Signs Vital signs: Temp Pulse Resp BP Pulse Ox 98.3 F 75 16 123/76 97 08/23/19 12:25 08/23/19 12:25 08/23/19 12:25 08/23/19 12:25 08/23/19 12:25 - Laboratory Result Diagrams: 08/23/19 13:00 08/23/19 13:00 Laboratory results interpreted by me: 08/23/19 08/23/19 13:00 13:00 Eos % (Auto) 10.0 H Seg Neutrophils % 37.0 L Urine Ascorbic Acid 20 H - Diagnostic Test Radiology reviewed: Image reviewed, Reports reviewed Discharge - Discharge Clinical Impression: Rectal pain Condition: Stable Disposition: HOME, SELF-CARE Forms: Return to Work Referrals: [facility] [Provider Group] - Follow up as needed
[2019-08-23 17:04] VITALS: BP 145/71
== END 2019-08-23 17:03 | disposition home or self-care (01) ==
LOC: ER 11:51
DX: K62.89 Other specified diseases of anus and rectum (principal); F17.200 Nicotine dependence, unspecified, uncomplicated; J45.909 Unspecified asthma, uncomplicated; Z87.19 Personal history of other diseases of the digestive system; Z98.890 Other specified postprocedural states
CPT/HCPCS: 36415; 72193; 80053; 81001; 85025; 99284

== ENCOUNTER 2020-01-19 12:14 | Emergency (ER) | payer BC, OTHER ==
--- NOTE | 2020-01-19 12:38 | ER Document Report ---
ED Medical Screen (RME) - General Chief Complaint: Abscess Stated Complaint: ABSCESS/BUTTOCKS Time Seen by Provider: 01/19/20 12:32 Notes: HPI: 24-year-old male with history of perirectal abscess presenting for similar discomfort in the rectal region for 2 days. Reports a small lump that is tender adjacent to the rectum. No fever. No difficulty with bowel movements. He is concerned about another abscess PHYSICAL EXAMINATION: Rectal exam deferred in triage I have greeted and performed a rapid initial assessment of this patient. A comprehensive ED assessment and evaluation of the patient, analysis of test results and completion of medical decision making process will be conducted by an additional ED providers. TRAVEL OUTSIDE OF THE [place] IN LAST 30 DAYS: No - Related Data Allergies/Adverse Reactions: No Known Allergies Allergy (Verified 01/19/20 12:27) Past Medical History - Social History Chew tobacco use (# tins/day): No Frequency of alcohol use: Occasional Drug Abuse: None Pulmonary Medical History: Reports: Hx Asthma Renal/ Medical History: Denies: Hx Peritoneal Dialysis Physical Exam - Vital signs Vitals: Temp Pulse Resp BP Pulse Ox 98.5 F 89 18 126/74 H 98 01/19/20 12:19 01/19/20 12:19 01/19/20 12:19 01/19/20 12:19 01/19/20 12:19 Course - Vital Signs Vital signs: Temp Pulse Resp BP Pulse Ox 98.5 F 89 18 126/74 H 98 01/19/20 12:27 01/19/20 12:19 01/19/20 12:19 01/19/20 12:19 01/19/20 12:19
[2020-01-19 12:59] LABS: ABSOLUTE EOSINOPHILS # (AUTO) 0.4 10^3/uL (0.0-0.6); ABSOLUTE LYMPHOCYTES (AUTO) 1.5 10^3/uL (0.5-4.7); ABSOLUTE MONOCYTES (AUTO) 0.3 10^3/uL (0.1-1.4); ABSOLUTE NEUT (AUTO) 1.4 10^3/uL (1.7-8.2); BASOPHILS % (AUTO) 0.5 % (0-2); EOSINOPHILS % (AUTO) 9.8 % (0-6); HEMATOCRIT 39.1 % (37.9-51.0); LYMPHOCYTES % (AUTO) 40.7 % (13-45); MEAN CORPUSCULAR HEMOGLOBIN 29.9 pg (27.0-33.4); MEAN CORPUSCULAR HGB CONC 33.3 g/dL (32.0-36.0); MEAN CORPUSCULAR VOLUME 90 fl (80-97); MONOCYTES % (AUTO) 9.5 % (3-13); PLATELET COUNT 152 10^3/uL (150-450); RED BLOOD COUNT 4.34 10^6/uL (4.35-5.55); RED CELL DISTRIBUTION WIDTH 12.6 % (11.5-14.0); SEGMENTED NEUTROPHILS % (AUTO) 39.5 % (42-78); TOTAL CELLS COUNTED % (AUTO) 100 %; WHITE BLOOD COUNT 3.6 10^3/uL (4.0-10.5)
[2020-01-19 13:22] LABS: ALBUMIN 4.6 g/dL (3.5-5.0); ALKALINE PHOSPHATASE 53 U/L (38-126); ANION GAP 6 (5-19); ASPARTATE AMINO TRANSFERASE 33 U/L (17-59); BILIRUBIN,TOTAL 0.9 mg/dL (0.2-1.3); BLOOD UREA NITROGEN 15 mg/dL (7-20); CALCIUM 9.4 mg/dL (8.4-10.2); CARBON DIOXIDE 28 mmol/L (22-30); CHLORIDE 104 mmol/L (98-107); GLUCOSE 101 mg/dL (75-110); POTASSIUM 4.3 mmol/L (3.6-5.0); TOTAL PROTEIN 7.4 g/dL (6.3-8.2)
--- NOTE | 2020-01-19 15:02 | ER Document Report ---
ED Skin Rash/Insect Bite/Abscs - General Chief Complaint: Abscess Stated Complaint: ABSCESS/BUTTOCKS Time Seen by Provider: 01/19/20 12:32 Primary Care Provider: RADHA SAWANT MD [ACTIVE STAFF] - Follow up as needed Mode of Arrival: Ambulatory Information source: Patient Notes: 24-year-old male past medical history significant for asthma and a perianal abscess presents to the emergency room complaining of a possible abscess to his right buttock cheek near his anus that he noticed 2 days ago. Patient states he had an abscess in that area in October 2018 that he had to go to the OR to have lanced. Has not had any issues since. Denies any rectal trauma. Denies any fevers. Denies any nausea or vomiting. Denies any discharge or draining from the area. TRAVEL OUTSIDE OF THE [place] IN LAST 30 DAYS: No - Related Data Allergies/Adverse Reactions: No Known Allergies Allergy (Verified 01/19/20 12:27) Past Medical History - Social History Smoking Status: Current Every Day Smoker Chew tobacco use (# tins/day): No Frequency of alcohol use: Occasional Drug Abuse: None, Marijuana Family History: None Patient has homicidal ideation: No Pulmonary Medical History: Reports: Hx Asthma Renal/ Medical History: Denies: Hx Peritoneal Dialysis Review of Systems - Review of Systems Constitutional: No symptoms reported Cardiovascular: No symptoms reported Respiratory: No symptoms reported Gastrointestinal: No symptoms reported Male Genitourinary: No symptoms reported Musculoskeletal: No symptoms reported Skin: Lumps Neurological/Psychological: No symptoms reported -: Yes All other systems reviewed and negative Physical Exam - Vital signs Vitals: Temp Pulse Resp BP Pulse Ox 98.5 F 89 18 126/74 H 98 01/19/20 12:19 01/19/20 12:19 01/19/20 12:19 01/19/20 12:19 01/19/20 12:19 - General General appearance: Appears well, Alert In distress: Mild - Respiratory Respiratory status: No respiratory distress Chest status: Nontender Breath sounds: Normal Chest palpation: Normal - Cardiovascular Rhythm: Regular Heart sounds: Normal auscultation Murmur: No - Rectal Tenderness: No - Hospital Housekeeper present Hemorrhoids: None Notes: There is less than 1/2 cm tender nonfluctuant abscess that is noted to the right buttock area near the anus. Not erythematous. Not warm to touch. There is no active discharge or draining noted. - Extremities General upper extremity: Normal inspection, Nontender, Normal color, Normal ROM, Normal temperature General lower extremity: Normal inspection, Nontender, Normal color, Normal ROM, Normal temperature, Normal weight bearing. No: Tal's sign - Skin Skin Temperature: Warm Skin Moisture: Dry Skin Color: Normal Course - Re-evaluation Re-evalutation: 01/19/20 15:01 Patient with a less than 1/2 cm junie anal abscess no erythema, not warm to palpation. No discharge or draining noted. Mild tenderness on palpation. Counseled patient on warm compresses 20 minutes 3 times a day. Antibiotics as prescribed. Outpatient follow-up with general surgery if not improving in 2 to 3 days. Patient was given strict return to the emergency room guidelines. Return for any new or worsening symptoms. All questions were answered. Patient verbalized understanding and agrees with plan of care. 01/19/20 15:06 01/19/20 21:50 - Vital Signs Vital signs: Temp Pulse Resp BP Pulse Ox 98.4 F 72 16 112/85 100 01/19/20 15:28 01/19/20 15:28 01/19/20 15:28 01/19/20 15:28 01/19/20 15:28 - Laboratory Result Diagrams: 01/19/20 12:45 01/19/20 12:45 Laboratory results interpreted by me: 01/19/20 12:45 WBC 3.6 L RBC 4.34 L Hgb 13.0 L Eos % (Auto) 9.8 H Absolute Neuts (auto) 1.4 L Seg Neutrophils % 39.5 L Discharge - Discharge Clinical Impression: Abscess, perianal Condition: Stable Disposition: HOME, SELF-CARE Instructions: Abscess ([facility]), Cephalexin ([facility]) Additional Instructions: Antibiotics as prescribed, warm compresses or sitz bath 20 minutes 3 times a day outpatient follow-up with general surgery if not improving in 2 to 3 days. Provided with on-call physician. Patient was given strict return to the emergency room guidelines. Return for any new or worsening symptoms. All questions were answered. Patient verbalized understanding and agrees with plan of care. Prescriptions: Cephalexin Monohydrate [Keflex 500 mg Capsule] 500 mg PO Q6H 10 Days #40 capsule Referrals: RADHA SAWANT MD [ACTIVE STAFF] - Follow up as needed
[2020-01-19 15:29] VITALS: BP 112/85
== END 2020-01-19 15:29 | disposition home or self-care (01) ==
LOC: ER 12:14
DX: K61.0 Anal abscess (principal); F17.200 Nicotine dependence, unspecified, uncomplicated
CPT/HCPCS: 36415; 80053; 85025; 99282

== ENCOUNTER 2020-04-10 06:05 | Emergency (ER) | payer BC, MEDICAID ==
[2020-04-10] MEDS ORDERED: IPRATROPIUM/ALBUTEROL 0.5-2.5 MG/3 ML AMPUL NEB ONE (06:33)
[2020-04-10] MEDS ORDERED: PREDNISONE 20 MG TABLET PO ONE (06:33)
[2020-04-10] MEDS: ALBUTEROL SULFATE 0.083% NEB 2.5 MG/3 ML AMPUL NEB SCH ×2 (06:37→06:57)
[2020-04-10] MEDS ORDERED: ALBUTEROL SULFATE 0.083% NEB 2.5 MG/3 ML AMPUL NEB ONE (09:27)
--- NOTE | 2020-04-10 10:30 | ER Document Report ---
ED General - General Chief Complaint: Asthma Exacerbation Stated Complaint: POSSIBLE ASTHMA ATTACK/RAN OUT OF MEDICATION Time Seen by Provider: 04/10/20 09:08 Primary Care Provider: DEEPALI SEXTON PA-C [Primary Care Provider] - Follow up as needed Information source: Patient TRAVEL OUTSIDE OF THE [place] IN LAST 30 DAYS: No - HPI Notes: Patient presents complaint of shortness of breath. He states it started yesterday. Is been constant. Moderate to severe. Worse with exertion and better with rest. He states he is an asthmatic and is currently out of his nebulizer medicine. He gets some relief from his inhaler but not significant amount. No recent cough cold or congestion. - Related Data Allergies/Adverse Reactions: No Known Allergies Allergy (Verified 04/10/20 06:26) Home Medications: ALUTEROL IHR AND LIQUID (OUT) Past Medical History - General Information source: Patient - Social History Smoking Status: Former Smoker Frequency of alcohol use: None Drug Abuse: None Family History: None Pulmonary Medical History: Reports: Hx Asthma Renal/ Medical History: Denies: Hx Peritoneal Dialysis Review of Systems - Review of Systems Constitutional: denies: Chills, Fever Cardiovascular: denies: Chest pain, Palpitations Respiratory: Cough, Short of breath, Wheezing -: Yes All other systems reviewed and negative Physical Exam - Vital signs Vitals: Temp Pulse Resp BP Pulse Ox 98.1 F 84 20 120/93 H 96 04/10/20 06:09 04/10/20 06:09 04/10/20 06:09 04/10/20 06:09 04/10/20 06:09 Interpretation: Normal - General General appearance: Appears well, Alert - HEENT Head: Normocephalic, Atraumatic Eyes: Normal Pupils: PERRL - Respiratory Respiratory status: No respiratory distress Chest status: Nontender Breath sounds: Wheezing - Bilateral expiratory Chest palpation: Normal - Cardiovascular Rhythm: Regular Heart sounds: Normal auscultation Murmur: No - Abdominal Inspection: Normal Distension: No distension Bowel sounds: Normal Tenderness: Nontender Organomegaly: No organomegaly - Back Back: Normal, Nontender - Extremities General upper extremity: Normal inspection, Nontender, Normal color, Normal ROM, Normal temperature General lower extremity: Normal inspection, Nontender, Normal color, Normal ROM, Normal temperature, Normal weight bearing. No: Tal's sign - Neurological Neuro grossly intact: Yes Cognition: Normal Orientation: AAOx4 [place] Coma Scale Eye Opening: Spontaneous Vinicius Coma Scale Verbal: Oriented Vinicius Coma Scale Motor: Obeys Commands [place] Coma Scale Total: 15 Speech: Normal Motor strength normal: LUE, RUE, LLE, RLE Sensory: Normal - Psychological Associated symptoms: Normal affect, Normal mood - Skin Skin Temperature: Warm Skin Moisture: Dry Skin Color: Normal Course - Re-evaluation Re-evalutation: 04/10/20 10:27 Patient received steroids here and 2 nebulizer treatments after these treatments he has significant both subjective and objective improvements. His lung sounds are significantly more clear. He also states that he feels significantly better. - Vital Signs Vital signs: Temp Pulse Resp BP Pulse Ox 98.1 F 84 20 120/93 H 96 04/10/20 06:09 04/10/20 06:09 04/10/20 06:09 04/10/20 06:09 04/10/20 06:09 Discharge - Discharge Clinical Impression: Acute asthma exacerbation Qualifiers: Asthma severity: mild Asthma persistence: intermittent Qualified Code(s): J45.21 - Mild intermittent asthma with (acute) exacerbation Condition: Stable Disposition: HOME, SELF-CARE Instructions: Inhaled Bronchodilators ([facility]), Asthma ([facility]) Prescriptions: Prednisone [Deltasone 20 mg Tablet] 3 tab PO DAILY 5 Days tablet Albuterol Sulfate [Ventolin 0.083% Neb 2.5 mg/3 mL Ampul] 1 vial NEB Q4 PRN 30 Days #100 vial PRN Reason: For Wheezing Referrals: DEEPALI SEXTON PA-C [Primary Care Provider] - Follow up in 3-5 days
[2020-04-10 10:38] VITALS: BP 142/78
== END 2020-04-10 10:38 | disposition home or self-care (01) ==
LOC: ER 06:05
DX: J45.21 Mild intermittent asthma with (acute) exacerbation (principal)
CPT/HCPCS: 94640 ×2; 99284; J7512; J7613

== ENCOUNTER 2020-04-30 10:33 | Emergency (ER) | payer BC, MEDICAID ==
--- NOTE | 2020-04-30 11:10 | ER Document Report ---
ED Medical Screen (RME) - General Chief Complaint: Chest Tightness Stated Complaint: CHEST TIGHTNESS Time Seen by Provider: 04/30/20 11:03 Primary Care Provider: DEEPALI SEXTON PA-C [Primary Care Provider] - Follow up as needed Mode of Arrival: Ambulatory Information source: Patient Notes: Otherwise healthy 25-year-old male presents emergency department chief complaint of right upper quadrant and epigastric pain that is been intermittent over the last 1 to 2 weeks. Patient reports pain is becoming more persistent. He states that it does hurt more after he eats however the pain can come on without association to food. He reports mild nausea for a few minutes yesterday but denies any vomiting or diarrhea. No pain elicited with palpation across the chest wall. Slight pain elicited over the epigastric and right upper quadrant area. Exam limited due to seated position in triage. Patient calm, cooperative, no acute distress noted. I have greeted and performed a rapid initial assessment of this patient. A comprehensive ED assessment and evaluation of the patient, analysis of test results and completion of the medical decision making process will be conducted by additional ED providers. I have specifically instructed the patient or family members with the patient to immediately return to any nursing staff should anything change in the patient's condition or with their chief complaint. TRAVEL OUTSIDE OF THE [place] IN LAST 30 DAYS: No - Related Data Allergies/Adverse Reactions: No Known Allergies Allergy (Verified 04/30/20 11:07) Past Medical History Pulmonary Medical History: Reports: Hx Asthma Renal/ Medical History: Denies: Hx Peritoneal Dialysis Physical Exam - Vital signs Vitals: Temp Pulse Resp BP Pulse Ox 98.1 F 74 16 120/67 98 04/30/20 10:47 04/30/20 10:47 04/30/20 10:47 04/30/20 10:47 04/30/20 10:47 Course - Vital Signs Vital signs: Temp Pulse Resp BP Pulse Ox 98.1 F 74 16 120/67 98 04/30/20 10:47 04/30/20 10:47 04/30/20 10:47 04/30/20 10:47 04/30/20 10:47 Doctor's Discharge - Discharge Referrals: DEEPALI SEXTON PA-C [Primary Care Provider] - Follow up as needed
[2020-04-30 11:30] LABS: ABSOLUTE EOSINOPHILS # (AUTO) 0.4 10^3/uL (0.0-0.6); ABSOLUTE LYMPHOCYTES (AUTO) 1.6 10^3/uL (0.5-4.7); ABSOLUTE MONOCYTES (AUTO) 0.4 10^3/uL (0.1-1.4); ABSOLUTE NEUT (AUTO) 1.5 10^3/uL (1.7-8.2); BASOPHILS % (AUTO) 0.6 % (0-2); EOSINOPHILS % (AUTO) 9.1 % (0-6); HEMATOCRIT 41.3 % (37.9-51.0); HEMOGLOBIN 13.9 g/dL (13.5-17.0); LYMPHOCYTES % (AUTO) 41.5 % (13-45); MEAN CORPUSCULAR HEMOGLOBIN 30.3 pg (27.0-33.4); MEAN CORPUSCULAR HGB CONC 33.7 g/dL (32.0-36.0); MEAN CORPUSCULAR VOLUME 90 fl (80-97); MONOCYTES % (AUTO) 10.5 % (3-13); PLATELET COUNT 163 10^3/uL (150-450); RED BLOOD COUNT 4.59 10^6/uL (4.35-5.55); RED CELL DISTRIBUTION WIDTH 12.6 % (11.5-14.0); SEGMENTED NEUTROPHILS % (AUTO) 38.3 % (42-78); TOTAL CELLS COUNTED % (AUTO) 100 %; WHITE BLOOD COUNT 3.9 10^3/uL (4.0-10.5)
[2020-04-30 11:39] LABS: APPEARANCE,URINE CLEAR; BILIRUBIN,URINE NEGATIVE (NEGATIVE); COLOR,URINE YELLOW; GLUCOSE, URINE NEGATIVE (NEGATIVE); KETONES,URINE NEGATIVE (NEGATIVE); LEUKOCYTE ESTERASE,URINE NEGATIVE (NEGATIVE); NITRITE,URINE NEGATIVE (NEGATIVE); PROTEIN,URINE NEGATIVE (NEGATIVE); URINE SPECIFIC GRAVITY 1.017; UROBILINOGEN,URINE NEGATIVE mg/dL (<2.0)
[2020-04-30 11:59] LABS: ALBUMIN 4.7 g/dL (3.5-5.0); ALKALINE PHOSPHATASE 47 U/L (38-126); ANION GAP 9 (5-19); ASPARTATE AMINO TRANSFERASE 32 U/L (17-59); BILIRUBIN,DIRECT 0.2 mg/dL (0.0-0.4); BILIRUBIN,TOTAL 1.2 mg/dL (0.2-1.3); BLOOD UREA NITROGEN 18 mg/dL (7-20); CALCIUM 9.4 mg/dL (8.4-10.2); CARBON DIOXIDE 26 mmol/L (22-30); CHLORIDE 105 mmol/L (98-107); GLUCOSE 96 mg/dL (75-110); POTASSIUM 4.3 mmol/L (3.6-5.0); TOTAL PROTEIN 7.5 g/dL (6.3-8.2)
--- NOTE | 2020-04-30 12:15 | RADIOLOGY REPORT (SQ) ---
EXAM DESCRIPTION: U/S ABDOMEN LIMITED W/O DOP IMAGES COMPLETED DATE/TIME: 04/30/2020 11:57 am REASON FOR STUDY: RUQ/epigastric pain COMPARISON: None. TECHNIQUE: Dynamic and static grayscale images acquired of the abdomen and recorded on PACS. Additio nal selected color Doppler and spectral images recorded. LIMITATIONS: Limited visualization. Poor acoustical window FINDINGS: PANCREAS: Limited visualization. no masses seen LIVER: Normal size Echo texture normal. No focal masses. LIVER VASCULATURE: Normal directional flow of the main portal vein and hepatic veins. GALLBLADDER: No stones. Normal wall thickness. No pericholecystic fluid. ULTRASOUND-DETECTED WELLS'S SIGN: Negative. INTRAHEPATIC DUCTS AND COMMON DUCT: CBD and intrahepatic ducts normal caliber. No filling defects. INFERIOR VENA CAVA: Normal flow. AORTA: No aneurysm. RIGHT KIDNEY: Normal size. Normal echogenicity. No solid or suspicious masses. No hydronephros is. No calcifications. PERITONEAL AND RIGHT PLEURAL SPACE: No ascites or effusions. OTHER: No other significant findings. IMPRESSION: NORMAL RIGHT UPPER QUADRANT ULTRASOUND VISUALIZED. TECHNICAL DOCUMENTATION: JOB ID: [id number] 2010 [employer]- All Rights Reserved Reading location - IP/workstation name: [email or web address]
[2020-04-30] MEDS ORDERED: LIDOCAINE 2% VISCOUS SOLN 15 ML UDCUP PO ONE (12:49)
[2020-04-30] MEDS ORDERED: MAG HYDROX/AL HYDROX/SIMETH SUSP 30 ML UDCUP PO ONE (12:49)
[2020-04-30] MEDS ORDERED: METOCLOPRAMIDE HCL ORAL SOLN 10 MG/10 ML UDCUP PO ONE (12:49)
--- NOTE | 2020-04-30 12:49 | ER Document Report ---
ED GI/ - General Chief Complaint: Abdominal Pain Stated Complaint: CHEST TIGHTNESS Time Seen by Provider: 04/30/20 11:03 Primary Care Provider: DEEPALI SEXTON PA-C [Primary Care Provider] - Follow up as needed Mode of Arrival: Ambulatory Notes: HPI: 25-year-old male who presents today stating around 2 weeks of some midepigastric abdominal discomfort. Better when standing up, worse when sitting down. He denies any radiation to his chest, cough, shortness of breath, lower abdominal pain, dysuria, diarrhea, constipation. He believes this was from sitting on a beanbag for an extended period of time over the last 2 weeks playing video games. ROS: See HPI All other review of systems reviewed and otherwise negative Reviewed vital signs and nursing note as charted by RN. PHYSICAL EXAM: CONSTITUTIONAL: Alert and oriented and responds appropriately to questions. Well-appearing; well-nourished HEAD: Normocephalic; atraumatic EYES: Sclerae non-icteric ENT: Normal nose; no rhinorrhea; moist mucous membranes; pharynx without lesions noted NECK: Supple without meningismus; non-tender; no cervical lymphadenopathy, no masses CARD: Regular rate and rhythm; no murmurs; symmetric distal pulses RESP: Normal chest excursion without splinting or tachypnea; breath sounds clear and equal bilaterally; no wheezes, no rhonchi, no rales ABD/GI: Normal bowel sounds; non-distended; soft, no focal tenderness to deep palpation of all 4 quadrants of the abdomen BACK: The back appears normal and is non-tender to palpation EXT: Normal ROM in all joints; non-tender to palpation; no edema SKIN: No acute lesions noted NEURO: CN 2-12 intact; 5/5 bilateral upper and lower extremity strength with sensation intact to light touch PSYCH: The patient's mood and manner are appropriate. Grooming and personal hygiene are appropriate. TRAVEL OUTSIDE OF THE [place] IN LAST 30 DAYS: No - Related Data Allergies/Adverse Reactions: No Known Allergies Allergy (Verified 04/30/20 11:07) Home Medications: albuterol Past Medical History - General Information source: Patient - Social History Smoking Status: Former Smoker Chew tobacco use (# tins/day): No Frequency of alcohol use: Social Drug Abuse: Marijuana Family History: None Patient has homicidal ideation: No Pulmonary Medical History: Reports: Hx Asthma Renal/ Medical History: Denies: Hx Peritoneal Dialysis Physical Exam - Vital signs Vitals: Temp Pulse Resp BP Pulse Ox 98.1 F 74 16 120/67 98 04/30/20 10:47 04/30/20 10:47 04/30/20 10:47 04/30/20 10:47 04/30/20 10:47 Course - Re-evaluation Re-evalutation: EKG shows heart of 68, normal sinus rhythm, normal axis, no obvious ST elevation or depression. No change when compared to previous EKG. Given the above history and physical we will evaluate the possibility of pancreatitis, transaminitis, right upper quadrant pathology including gallbladder pathology, and reassess. 04/30/20 12:46 Labs and imaging as recorded. Uncertain etiology of a slightly low white blood cell count. Patient is not neutropenic lymphopenic. Liver panel and lipase as recorded. No pain on repeat exam. EKG as dictated above. Ultrasound as recorded. Given the history and physical with atypical symptoms, with no real exacerbating or aggravating factors, I will start the patient on a PPI with strict return precautions and follow-up with the primary doctor. - Vital Signs Vital signs: Temp Pulse Resp BP Pulse Ox 98.1 F 74 16 120/67 98 04/30/20 11:04 04/30/20 10:47 04/30/20 10:47 04/30/20 10:47 04/30/20 10:47 - Laboratory Result Diagrams: 04/30/20 11:15 04/30/20 11:15 Laboratory results interpreted by me: 04/30/20 04/30/20 11:15 11:15 WBC 3.9 L Eos % (Auto) 9.1 H Absolute Neuts (auto) 1.5 L Seg Neutrophils % 38.3 L Urine Blood SMALL H Discharge - Discharge Clinical Impression: Epigastric abdominal pain Condition: Good Disposition: HOME, SELF-CARE Additional Instructions: Come back immediately for any increased pain, change in location or quality of pain, fevers or vomiting, shortness of breath, or any other acute problems. Please make sure that you follow-up with the primary care physician and possibly gastroenterology as I have provided you. You may also take [id number] Prilosec once daily as instructed. Referrals: REDINGER,DEEPALI, PA-C [Primary Care Provider] - Follow up as needed MARGARITA PACE MD [ACTIVE STAFF] - Follow up as needed
[2020-04-30 13:23] VITALS: BP 112/62
--- NOTE | 2020-04-30 19:55 | EKG REPORT ---
SEVERITY:- BORDERLINE ECG - SINUS RHYTHM BORDERLINE Q WAVES IN INFERIOR LEADS INFERIOR Q WAVES, PROBABLY NORMAL VARIATION : Confirmed by: Lisa Alcantar 30-Apr-2020 19:55:07
== END 2020-04-30 13:21 | disposition home or self-care (01) ==
LOC: ER 10:33
DX: R10.13 Epigastric pain (principal); F12.10 Cannabis abuse, uncomplicated; J45.909 Unspecified asthma, uncomplicated; Z79.899 Other long term (current) drug therapy; Z87.891 Personal history of nicotine dependence
CPT/HCPCS: 93005; 99285; 36415; 83690; 85025; 80053; 81001; 84484; 76705; 93010; J3490